=== PATIENT | female | born 1940 | race Caucasian/White ===

== ENCOUNTER 2021-01-10 14:36 | Emergency (ER) | payer OTHER, MEDICARE ==
[2021-01-10 15:34] VITALS: TEMP 97.6; BMI 25.0
[2021-01-10] MEDS ORDERED: ONDANSETRON 4 MG/2 ML VIAL IVPUSH ONE (16:03)
[2021-01-10] MEDS ORDERED: SODIUM CHLORIDE 1,000 ML IV STA (16:03)
[2021-01-10] MEDS ORDERED: ACETAMINOPHEN 500 MG TABLET (FP) PO ONE (16:03)
[2021-01-10] MEDS ORDERED: ACETAMINOPHEN 500 MG TABLET (FP) ONE (16:12)
[2021-01-10] MEDS ORDERED: ONDANSETRON 4 MG/2 ML VIAL ONE (16:12)
[2021-01-10 16:22] LABS: BASO % 2.5 % (0-2.0); EOS % 0.6 % (0-4.5); HEMATOCRIT 41.1 % (32.4-45.2); HEMOGLOBIN 13.9 GM/dl (10.7-15.3); LYMPH % 20.8 % (8-40); MCH 36.7 pg (25.7-33.7); MEAN CELL VOLUME 108.1 fl (80-96); MEAN PLT VOLUME 9.8 fl (7.5-11.1); MONO % 8.9 % (3.8-10.2); NEUT % 67.2 % (42.8-82.8); PLATELET COUNT 177 K/MM3 (134-434); WHITE BLOOD COUNT 4.6 K/mm3 (4.0-10.8)
[2021-01-10 16:28] LABS: ALBUMIN 3.9 g/dl (3.4-5.0); BILIRUBIN,TOTAL 1.4 mg/dl (0.2-1); CALCIUM 9.5 mg/dl (8.5-10); CREATININE 1.1 mg/dl (0.55-1.3); TOT PROT 6.3 g/dl (6.4-8.2)
[2021-01-10] MEDS ORDERED: FAMOTIDINE 20 MG/50 ML IVPB 20 MG/50 ML MG IVPB ONE ×2 (17:08→17:15)
[2021-01-10 18:30] VITALS: BP 115/82; PULSE 91
== END 2021-01-10 18:25 | disposition home or self-care (01) ==
LOC: FER 14:36
PROC: 3E033NZ Introduction of Analgesics, Hypnotics, Sedatives into Peripheral Vein, Percutaneous Approach (ICD-10-PCS; principal; 2021-01-10)
PROC: 3E033GC Introduction of Other Therapeutic Substance into Peripheral Vein, Percutaneous Approach (ICD-10-PCS; 2021-01-10)
PROC: 3E0337Z Introduction of Electrolytic and Water Balance Substance into Peripheral Vein, Percutaneous Approach (ICD-10-PCS; 2021-01-10)
DX: K29.80 Duodenitis without bleeding (principal)
CPT/HCPCS: 36415; 74177-TC; 80053; 81003; 83690; 85025; 87086; 93005; 99285-25; C9803; Q9967; U0003; U0005

== ENCOUNTER 2021-01-21 15:35 | Inpatient (IN) | payer OTHER, MEDICARE ==
[2021-01-21] MEDS ORDERED: LACTATED RINGERS SOLUTION 1000 ML INFUS.BAG IV ONE (16:12)
[2021-01-21] MEDS ORDERED: ONDANSETRON 4 MG/2 ML VIAL IVPUSH ONE (16:12)
[2021-01-21] MEDS ORDERED: ONDANSETRON 4 MG/2 ML VIAL ONE (17:00)
[2021-01-21 17:14] LABS: HEMATOCRIT 43.9 % (32.4-45.2); HEMOGLOBIN 15.1 GM/dl (10.7-15.3); MCH 37.5 pg (25.7-33.7); MCHC 34.3 g/dl (32.0-36.0); MEAN CELL VOLUME 109.4 fl (80-96); MEAN PLT VOLUME 8.4 fl (7.5-11.1); PLATELET COUNT 278 K/MM3 (134-434); RBC 4.01 M/mm3 (3.60-5.2); RDW 16.1 % (11.6-15.6); WHITE BLOOD COUNT 4.9 K/mm3 (4.0-10.8)
[2021-01-21 17:32] LABS: ALBUMIN 4.1 g/dl (3.4-5.0); ALK PHOS 83 U/L (45-117); ANION GAP 14 MMOL/L (8-16); BILIRUBIN,TOTAL 1.3 mg/dl (0.2-1); CALCIUM 9.9 mg/dl (8.5-10); CHLORIDE 99 mmol/L (98-107); CO2 24 mmol/L (21-32); CREATININE 1.2 mg/dl (0.55-1.3); GLUCOSE,RANDOM 115 mg/dl (74-106); SGOT/AST 19 U/L (15-37); SGPT/ALT 15 U/L (13-61); SODIUM 137 mmol/L (136-145); TOT PROT 7.1 g/dl (6.4-8.2)
[2021-01-21 19:41] LABS: MACROCYTOSIS 2+; PLATELET ESTIMATE ADEQUATE
[2021-01-21 22:31] VITALS: BMI 23.2
[2021-01-21] MEDS ORDERED: ONDANSETRON 4 MG/2 ML VIAL IVPUSH PRN (23:00)
[2021-01-22 08:21] LABS: BILIRUBIN,TOTAL 0.9 mg/dl (0.2-1); CREATININE 0.9 mg/dl (0.55-1.3)
[2021-01-22 08:24] LABS: BASO % 4.9 % (0-2.0); EOS % 0.9 % (0-4.5); HEMATOCRIT 34.3 % (32.4-45.2); HEMOGLOBIN 11.9 GM/dl (10.7-15.3); LYMPH % 38.7 % (8-40); MCH 37.7 pg (25.7-33.7); MCHC 34.7 g/dl (32.0-36.0); MEAN CELL VOLUME 108.6 fl (80-96); MEAN PLT VOLUME 8.5 fl (7.5-11.1); MONO % 11.8 % (3.8-10.2); NEUT % 43.7 % (42.8-82.8); PLATELET COUNT 231 K/MM3 (134-434); RBC 3.16 M/mm3 (3.60-5.2); WHITE BLOOD COUNT 3.3 K/mm3 (4.0-10.8)
[2021-01-22] MEDS: DEXTROSE 5%-0.45% SALINE 1,000 ML IV SCH (09:26)
[2021-01-22] MEDS ORDERED: RIBOCICLIB SUCCINATE PO SCH (10:00)
[2021-01-22] MEDS ORDERED: PROPOFOL 20 ML ONE (10:02)
[2021-01-22] MEDS ORDERED: LIDOCAINE HCL/PF 2% SDV 5ML VIAL ONE (10:02)
[2021-01-22] MEDS ORDERED: PANTOPRAZOLE 40 MG TABLET PO SCH (10:30)
[2021-01-22] MEDS: ARIPiprazole 2 MG TABLET PO SCH (10:36)
[2021-01-22] MEDS: FLUoxetine HCL 20 MG CAPSULE PO SCH (10:36)
[2021-01-22] MEDS: LORazepam 0.5 MG TABLET PO SCH ×2 (10:36→21:27)
[2021-01-22] MEDS: PANTOPRAZOLE 40 MG TABLET PO SCH ×2 (10:40→21:27)
[2021-01-23] MEDS: DEXTROSE 5%-0.45% SALINE 1,000 ML IV SCH (00:06)
[2021-01-23] MEDS: PANTOPRAZOLE 40 MG TABLET PO SCH (09:26)
[2021-01-23] MEDS: ARIPiprazole 2 MG TABLET PO SCH (09:26)
[2021-01-23] MEDS: FLUoxetine HCL 20 MG CAPSULE PO SCH (09:27)
[2021-01-23] MEDS: LORazepam 0.5 MG TABLET PO SCH (09:27)
[2021-01-23 09:57] VITALS: BP 115/57; PULSE 66; TEMP 97.8
== END 2021-01-23 12:04 | disposition home or self-care (01) | DRG 384 ==
LOC: FER 15:35 → FM/S 20:01
PROVIDERS: ADMIT Internal Medicine; ATTEND Nurse Practitioner Acute Care
PROC: 0DB68ZX Excision of Stomach, Via Natural or Artificial Opening Endoscopic, Diagnostic (ICD-10-PCS; 2021-01-22)
PROC: 0DB98ZX Excision of Duodenum, Via Natural or Artificial Opening Endoscopic, Diagnostic (ICD-10-PCS; principal; 2021-01-22 10:03)
DX: K25.9 Gastric ulcer, unspecified as acute or chronic, without hemorrhage or perforation (principal); K29.80 Duodenitis without bleeding; K20.90 Esophagitis, unspecified without bleeding; K44.9 Diaphragmatic hernia without obstruction or gangrene; K59.09 Other constipation; F41.9 Anxiety disorder, unspecified; E86.0 Dehydration; R10.9 Unspecified abdominal pain; K29.70 Gastritis, unspecified, without bleeding; Z85.3 Personal history of malignant neoplasm of breast
CPT/HCPCS: 36415; 74018-TC-FY; 80053; 82550; 82607; 83605; 83690; 84484; 85025; 86850; 86900; 86901; 88305-TC; 93005; 99285-25; C9803; U0003; U0005

== ENCOUNTER 2022-01-14 14:10 | Emergency (ER) | payer OTHER, MEDICARE ==
[2022-01-14 14:14] VITALS: PULSE 78; TEMP 97.9; BMI 23.3
[2022-01-14] MEDS ORDERED: LORazepam 2 MG/ML SDV VIAL IVPUSH ONE (15:41)
[2022-01-14 16:14] LABS: ALBUMIN 3.5 g/dl (3.4-5.0); BILIRUBIN,TOTAL 0.7 mg/dl (0.2-1); CALCIUM 9.3 mg/dl (8.5-10); CREATININE 0.9 mg/dl (0.55-1.3); TOT PROT 6.1 g/dl (6.4-8.2)
[2022-01-14 16:18] LABS: HEMATOCRIT 38.5 % (32.4-45.2); HEMOGLOBIN 13.1 G/dL (10.7-15.3); MCH 37.3 pg (25.7-33.7); MCHC 33.9 g/dl (32.0-36.0); MEAN PLT VOLUME 9.5 fl (7.5-11.1); PLATELET COUNT 216.4 10^3/uL (134-434); RDW 15.2 % (11.6-15.6); WHITE BLOOD COUNT 5.3 10^3/uL (4.0-10.8)
[2022-01-14 16:25] LABS: ADD RBC MORPHOLOGY YES
[2022-01-14] MEDS ORDERED: MIDAZOLAM HCL 2 MG/2 ML SINGLE DOSE VIAL IVPUSH ONE (17:24)
[2022-01-14 18:16] LABS: ANISOCYTOSIS 1+
[2022-01-14 18:17] LABS: MACROCYTOSIS 1+; OVALOCYTE 1+
[2022-01-14] MEDS ORDERED: MIDAZOLAM HCL 2 MG/2 ML SINGLE DOSE VIAL ONE (18:40)
[2022-01-14 19:46] VITALS: BP 115/68
== END 2022-01-14 19:40 | disposition home or self-care (01) ==
LOC: FER 14:10
PROC: 3E033NZ Introduction of Analgesics, Hypnotics, Sedatives into Peripheral Vein, Percutaneous Approach (ICD-10-PCS; principal; 2022-01-14)
DX: M54.50 Low back pain, unspecified (principal); M25.562 Pain in left knee; W01.0XXA Fall on same level from slipping, tripping and stumbling without subsequent striking against object, initial encounter
CPT/HCPCS: 36415; 70450-TC; 71045-TC-FY; 72125-TC; 72170-TC-FY; 73562-TC-LT-FY; 73700-TC-RT; 80053; 84484; 85025; 93005; 99285-25